=== PATIENT | male | born 1960 | race Two or more races ===

== ENCOUNTER 2024-07-27 20:53 | Inpatient (IN) | payer OTHER ==
[~2024-07-27] VITALS: Ht 180.3 cm; Wt 79.5 kg
[2024-07-27 21:37] LABS: BASOPHILS % (AUTO) 1.2 % (0.0-2.0); EOSINOPHILS % (AUTO) 3.3 % (1.0-6.0); HEMATOCRIT 44.7 % (41-53); LYMPHOCYTES # (AUTO) 2.9 K/uL (1.0-4.8); LYMPHOCYTES % (AUTO) 41.2 % (22.0-44.0); MEAN CORPUSCULAR HEMOGLOBIN 30.7 pg (26.0-34.0); MEAN CORPUSCULAR HGB CONC 33.5 G/dL (31.0-37.0); MEAN CORPUSCULAR VOLUME 92 fL (80-100); MONOCYTES # (AUTO) 0.6 K/uL (0.1-1.0); MONOCYTES % (AUTO) 7.9 % (2.0-9.0); NEUTROPHILS # (AUTO) 3.3 K/uL (1.8-7.7); NEUTROPHILS % (AUTO) 46.4 % (40.0-70.0); PLATELET COUNT (AUTO) 259 K/uL (150-450); RED BLOOD CELL COUNT(AUTO) 4.88 MIL/uL (4.50-5.90); RED CELL DISTRIBUTION WIDTH 13.4 % (11.5-14.5); WHITE BLOOD COUNT (AUTO) 7.1 K/uL (4.5-11.0)
[2024-07-27 21:44] LABS: ALCOHOL, BLOOD (SERUM) < 3 mg/dL (0-10)
[2024-07-27 21:47] LABS: ALANINE AMINOTRANSFERASE 25 U/L (12-78); ALBUMIN 3.5 g/dL (3.4-5.0); ALKALINE PHOSPHATASE 89 U/L (46-116); ASPARTATE AMINOTRANSFERASE 28 U/L (15-37); BILIRUBIN,TOTAL 0.3 mg/dL (0.1-1.0)
[2024-07-27 21:51] LABS: ANION GAP 9 mmol/L (8-16); CALCIUM, TOTAL 8.5 mg/dL (8.8-10.5); CARBON DIOXIDE 26 mmol/L (22-29); CHLORIDE 105 mmol/L (98-107); CREATININE 0.99 mg/dL (0.60-1.30); GLOMERULAR FILTR. RATE CALC > 60 mL/min (>60); GLUCOSE,RANDOM 141 mg/dL (70-110); POTASSIUM 3.6 mmol/L (3.5-5.1); SODIUM SERUM 140 mmol/L (136-145); UREA NITROGEN, BLOOD 16 mg/dL (7-18)
[2024-07-27] MEDS ORDERED: ACETAMINOPHEN 325 MG TABLET PO PRN (23:15)
[2024-07-27] MEDS ORDERED: LORazepam 2 MG/ML VIAL IVP PRN ×2 (23:15)
[2024-07-27] MEDS ORDERED: ONDANSETRON HCL 4 MG/2 ML VIAL IVP PRN (23:15)
[2024-07-27] MEDS: 1: MAGNESIUM SULFATE 2 GM, MVI, ADULT NO.1 WITH VIT K 10 ML, THIAMINE 100 MG, FOLIC ACID IV SCH (23:35)
[2024-07-27] MEDS ORDERED: LISI-894 PO (23:47)
[2024-07-27] MEDS ORDERED: GABA-1181 PO (23:47)
[2024-07-27] MEDS ORDERED: BUPR-344 PO (23:47)
[2024-07-27] MEDS ORDERED: DONE-52 PO (23:47)
[2024-07-28] MEDS: HEPARIN SODIUM,PORCINE 5,000 UNITS/ML VIAL SQ SCH (00:41)
[2024-07-28 06:54] VITALS: BP 153/90; PULSE 68; RESP 18; TEMP 97.7; O2SAT 98
[2024-07-28 07:54] VITALS: BP 155/95; PULSE 71; RESP 18; TEMP 98.4; O2SAT 100
[2024-07-28] MEDS: DOCUSATE SODIUM 100 MG CAPSULE PO SCH (08:47)
[2024-07-28 10:28] LABS: BASOPHILS % (AUTO) 2.2 % (0.0-2.0); HEMATOCRIT 43.3 % (41-53); HEMOGLOBIN 14.6 g/dL (13.5-17.5); MEAN CORPUSCULAR HGB CONC 33.8 G/dL (31.0-37.0); MEAN CORPUSCULAR VOLUME 92 fL (80-100); MONOCYTES # (AUTO) 0.7 K/uL (0.1-1.0); MONOCYTES % (AUTO) 12.2 % (2.0-9.0); NEUTROPHILS # (AUTO) 3.1 K/uL (1.8-7.7); NEUTROPHILS % (AUTO) 50.6 % (40.0-70.0); PLATELET COUNT (AUTO) 237 K/uL (150-450); RED BLOOD CELL COUNT(AUTO) 4.72 MIL/uL (4.50-5.90); RED CELL DISTRIBUTION WIDTH 13.6 % (11.5-14.5); WHITE BLOOD COUNT (AUTO) 6.1 K/uL (4.5-11.0)
[2024-07-28 10:37] LABS: CALCIUM, TOTAL 8.3 mg/dL (8.8-10.5); CHLORIDE 108 mmol/L (98-107); CREATININE 0.95 mg/dL (0.60-1.30); GLOMERULAR FILTR. RATE CALC > 60 mL/min (>60); GLUCOSE,RANDOM 89 mg/dL (70-110); POTASSIUM 3.9 mmol/L (3.5-5.1); SODIUM SERUM 142 mmol/L (136-145); UREA NITROGEN, BLOOD 12 mg/dL (7-18)
[2024-07-28 10:49] LABS: ANION GAP 8 mmol/L (8-16); CARBON DIOXIDE 26 mmol/L (22-29)
[2024-07-28 13:00] VITALS: BP 128/92; PULSE 63; RESP 19; TEMP 97.9; O2SAT 99
[2024-07-28] MEDS ORDERED: SODIUM CHLORIDE 0.9% 1,000 ML ONE (13:29)
[2024-07-28] MEDS ORDERED: BuPROPion HCL 75 MG TABLET PO SCH (14:15)
[2024-07-28] MEDS: lisinopriL 20 MG TABLET PO SCH (14:25)
[2024-07-28] MEDS: GABAPENTIN 300 MG CAPSULE PO SCH (14:25)
[2024-07-28 15:16] VITALS: BP 126/86; PULSE 65; RESP 18; TEMP 98; O2SAT 98
[2024-07-28] MEDS: OXcarbazepine 300 MG TABLET PO SCH (15:23)
[2024-07-28] MEDS: DONEPEZIL HCL 5 MG TABLET PO SCH (15:23)
[2024-07-28] MEDS: BuPROPion HCL 75 MG TABLET PO SCH (15:23)
[2024-07-29] MEDS ORDERED: lisinopriL 20 MG TABLET PO SCH (09:00)
== END 2024-07-28 20:25 | disposition left against medical advice (07) | DRG 894 ==
LOC: EMS 20:53 → EDH 23:01 → 5S 07-28 06:46
PROVIDERS: ADMIT Internal Medicine; ATTEND Internal Medicine
DX: F10.239 Alcohol dependence with withdrawal, unspecified (principal); Z53.29 Procedure and treatment not carried out because of patient's decision for other reasons; Y90.0 Blood alcohol level of less than 20 mg/100 ml; I10 Essential (primary) hypertension; F32.A Depression, unspecified; F41.9 Anxiety disorder, unspecified; R73.9 Hyperglycemia, unspecified; Z91.199 Patient's noncompliance with other medical treatment and regimen due to unspecified reason
CPT/HCPCS: 80048; 80076; 83735; 85025; 99285; G0378; G0480; J1644; J3411; J3475; J3490; J7030